=== PATIENT | female | born 2000 | race Caucasian/White ===

== ENCOUNTER → 2020-02-13 10:22 | Outpatient (BNVA) | payer BC, SELFPAY | PROVIDERS: PCP Family Medicine; Visit Provider Nurse Practitioner | DX: J02.9 Acute pharyngitis, unspecified (principal); J30.9 Allergic rhinitis, unspecified; R09.82 Postnasal drip | CPT/HCPCS: 87071; 87880 ==

== ENCOUNTER 2020-04-28 15:55 | Emergency (ER) | payer BC, SELFPAY ==
[2020-04-28 15:57] VITALS: BP 115/77; PULSE 80; RESP 18; TEMP 36.9; O2SAT 98; BMI 21.9
--- NOTE | 2020-04-28 16:16 | XRR_ITS ---
PROCEDURE INFORMATION: Exam: XR Chest, 1 View Exam date and time: 04/28/2020 4:35 PM Age: 19 years old Clinical indication: Other: Hemoptysis TECHNIQUE: Imaging protocol: XR of the chest Views: 1 view. COMPARISON: No relevant prior studies available. FINDINGS: Lungs: Unremarkable. No consolidation. Pleural space: Unremarkable. No pleural effusion. No pneumothorax. Heart/Mediastinum: Unremarkable. No cardiomegaly. Bones/joints: Unremarkable. XR/XR chest 1V portable [id number] IMPRESSION: No acute findings.
--- NOTE | 2020-04-28 16:20 | W.ED.GENADLT ---
HPI - General Adult General: Chief complaint: General Medical Stated complaint: COUGH WITH BLOOD/HERNIA Time Seen by Provider: 04/28/20 16:15 History of Present Illness: HPI narrative: Patient says that over the last couple months she is coughed up some blood-tinged stuff out of her mouth at times denies shortness of breath is a smoker. Says also that she has little hernia that she has had since she had a not bothering her but she feels a little ball is something right above her umbilicus not painful not swollen. No night sweats no recent weight loss. complaint: Hemoptysis Onset (ago): month(s) Associated symptoms: Reports no associated symptoms; Deny chest pain, dyspnea, headache(s), nausea, rash or vomiting Review of Systems Const: Denies: fever(s), chills or body aches Eyes: Denies: change in vision or blurry vision ENMT: Denies: throat pain or nasal congestion Card: Denies: chest pain or dyspnea on exertion Resp: Reports: hemoptysis (Like speckled stuff that comes up); Denies: dyspnea, productive cough or non-productive cough GI: Reports: other (Think she has umbilical hernia); Denies: abdominal pain, nausea or vomiting Musc: Denies: extremity pain Skin/Breast: Denies: rash Neuro: Denies: headache(s) Psych: Denies: anxiety or depression Mukesh/Lymph: Denies: easy bruising PFS ED PFSH: Social History (Updated 02/13/20 @ 10:18 by Kaya Hong LPN) Smoking and tobacco status: current every day smoker Physical Exam Const: COMMON NORMALS: no acute distress, average body habitus and patient oriented x3 HENMT: COMMON NORMALS: normocephalic HEAD & SCALP: normal to inspection and normocephalic FACE & SINUS: normal facial exam Eye: COMMON NORMALS: conjunctivae normal GENERAL EYE: appearance normal, both eyes and all related structures CONJUNCTIVA: Yes conjunctivae normal Neck/C-Spine: COMMON NORMALS: no JVD Chest: COMMONS NORMALS: normal inspection of the chest Resp: COMMON NORMALS: normal respiratory effort and clear to auscultation bilaterally AUSCULTATION: clear to auscultation bilaterally Cardio: COMMON NORMALS: no JVD, regular rate and regular rhythm RATE: regular rate RHYTHM: regular rhythm GI: COMMON NORMALS: Normal to inspection, nondistended, normoactive bowel sounds present INSPECTION: Yes other (Possible small umbilical hernia 12 o'clock position to the umbilicus could be scar tissue to because she has had a belly ring and not painful not swollen does not protrude out) Extremity: COMMON NORMALS: normal to inspection and full ROM Neuro: COMMON NORMALS: patient oriented x3 Course Vital Signs: Vital signs: Vital Signs Temperature 98.4 F 04/28/20 15:57 Pulse Rate 80 04/28/20 15:57 Respiratory Rate 18 04/28/20 15:57 Blood Pressure 115/77 04/28/20 15:57 Pulse Oximetry 98 04/28/20 15:57 Discharge Plan Discharge Prescriptions: No Action No Known Home Medications RF: 0 Coding Level of Care Code ED Corking Machine Operator for Chg Fwd Exam Comprehensive
[2020-04-28 16:53] VITALS: BP 116/58; PULSE 68; RESP 18; O2SAT 99
== END 2020-04-28 16:59 | disposition home or self-care (01) ==
PROVIDERS: Emergency Provider Nurse Practitioner Family; PCP Family Medicine
DX: R04.2 Hemoptysis (principal); F17.210 Nicotine dependence, cigarettes, uncomplicated
CPT/HCPCS: 12345; 71045; 99281; 99282

== ENCOUNTER 2021-05-31 13:27 | Emergency (ER) | payer BC, SELFPAY ==
[2021-05-31 13:47] VITALS: BMI 19.8
--- NOTE | 2021-05-31 13:55 | ED_ITS ---
HPI - General Adult General: Chief complaint: Psychiatric Symptoms Stated complaint: PSYCH/ SI Time Seen by Provider: 05/31/21 13:48 History of Present Illness: HPI narrative: This patient is a 20-year-old female who presents to the emergency department with complaint of suicidal ideation. Patient states she just does not want to live. Patient has a history of the same has a history of cutting herself in a history of old overdose three times. Patient states she recently had her children taken away from her due to false allegations. Patient states that her boyfriend broke up with her today and that she is bending and. Patient was brought in by [employer] Operator's deputy. Police [facility]'s deputy responded to the residents for the patient being suicidal. Patient states that she had try to cut her hand while she was intentionally smashing glass that she could cut herself.. She kept stating to the transit police officer I cannot take this anymore . Associated symptoms: Deny chest pain, dyspnea, headache(s), nausea, rash, palpitations or vomiting Review of Systems General: Reports: 10 or more systems reviewed and unremarkable except in HPI and below Const: Denies: fever(s), chills, body aches or fatigue Eyes: Denies: change in vision or blurry vision ENMT: Denies: throat pain, hoarseness or mouth pain Card: Denies: chest pain, palpitations, irregular heart rhythm, edema, swelling of feet/ankles or lightheadedness Resp: Denies: dyspnea, productive cough, non-productive cough, wheezing or pain on inspiration GI: Denies: abdominal pain, nausea or vomiting : Denies: flank pain, difficulty voiding, dysuria, urinary frequency, urinary urgency or urinary hesitancy Musc: Denies: neck pain, back pain, extremity pain, extremity swelling, joint pain, joint swelling, joint redness, joint warmth or limited range of motion Skin/Breast: Denies: rash, pruritus, erythema or skin tenderness Neuro: Denies: headache(s), numbness in extremities or weakness in extremities Psych: Reports: anxiety and suicidal ideation; Denies: depression PFSH ED PFSH: Social History Smoking and tobacco status: current every day smoker Physical Exam Const: COMMON NORMALS: no acute distress, average body habitus, patient oriented x3, no limitations, healthy appearing, alert and well nourished HENMT: COMMON NORMALS: normocephalic, atraumatic, hearing grossly normal bilaterally, external ears normal, EAC's normal, TM's normal bilaterally, Normal external nose present, Normal nasal mucous membranes and turbinates present, moist oral mucous membranes, oropharynx normal, dentition normal and gingiva normal HEAD & SCALP: normocephalic and atraumatic NOSE: Normal external nose present and Normal nasal mucous membranes and turbinates present EXTERNAL EAR: Yes external ears normal EXTERNAL AUDITORY CANAL: EAC's normal TYMPANIC MEMBRANE: TM's normal bilaterally Neck/C-Spine: COMMON NORMALS: full ROM, no lymphadenopathy, supple, no meningeal signs, no JVD, Thyroid normal and No carotid bruits THYROID: Thyroid normal Chest: COMMONS NORMALS: normal inspection of the chest, normal palpation of entire chest wall, normal inspection of the breasts and normal palpation of the breasts Breast/axilla inspection: Yes normal inspection of the breasts BREAST/AXILLA PALPATION: Yes normal palpation of the breasts Resp: COMMON NORMALS: normal respiratory effort, No retractions, No use of accessory muscles, clear to auscultation bilaterally and percussion normal AUSCULTATION: clear to auscultation bilaterally PERCUSSION: percussion normal Cardio: COMMON NORMALS: no JVD, regular rate, regular rhythm, S1 normal heart sound present, S2 normal heart sound present, No gallops present (Cardio), No clicks present (Cardio), No murmurs present (Cardio), No rub (Cardio) and Peripheral pulses 2+ throughout RATE: regular rate RHYTHM: regular rhythm HEART SOUNDS: S1 normal heart sound present and S2 normal heart sound present PERIPHERAL PULSES: Peripheral pulses 2+ throughout GI: COMMON NORMALS: Normal to inspection, nondistended, normoactive bowel sounds present, Soft to palpation, non-tender, No hepatosplenomegaly present, no masses and no bruits PALPATION: Yes Soft to palpation and Yes No hepatosplenomegaly present Back/Pelvis: COMMON NORMALS: thoracic and lumbar spine normal to inspection, no thoracic nor lumbar tenderness, thoraco-lumbar ROM normal and straight leg raise negative bilaterally Extremity: COMMON NORMALS: normal to inspection, full ROM, capillary refill normal, no joint enlargement, no clubbing, cyanosis or edema, no calf tenderness and no pedal edema Neuro: COMMON NORMALS: patient oriented x3 SENSORIUM/ORIENTATION: Yes alert MENINGEAL SIGNS: Yes no meningeal signs Psych: COMMON NORMALS: cooperative THOUGHT CONTENT: Yes Suicidality present Course Reevaluation(s): Reevaluation #1: Patient is remorseful for her actions today. Patient states she just feels so frustrated with everything going on with her ex- and her child. False accusations accusing her of using drugs which she is not. And is becoming overwhelming. We discussed at length with patient about options. Patient does go to family court on the discussed custody issues with child. Patient is requesting to be discharged home if possible. I did discuss at length with patient about medical screening exam and evaluate will discuss with psychiatry patient states understanding Time: 14:53 Consultations: Consultation #1: I did discuss at length with Dr. Chandra psychiatry. He will come see patient. Time: 16:19 Consultation #2: Patient seen and evaluated by Dr. Chandra he recommends discharge home with follow-up with primary care. Patient be discharged per her request Time: 17:28 MDM - General Adult MDM Narrative: Medical decision making narrative: This patient is a 20-year-old female who presents to the emergency department with complaint of suicidal ideation. Patient states she just does not want to live. Patient has a history of the same has a history of cutting herself in a history of old overdose three times. Patient states she recently had her children taken away from her due to false allegations. Patient states that her boyfriend broke up with her today and that she is bending and. Patient was brought in by [employer]'s deputy. Police [facility]'s deputy responded to the residents for the patient being suicidal. Patient states that she had try to cut her hand while she was intentionally smashing glass that she could cut herself.. She kept stating to the transit police officer I cannot take this anymore . Patient is remorseful for her actions today. Patient states she just feels so frustrated with everything going on with her ex- and her child. False accusations accusing her of using drugs which she is not. And is becoming overwhelming. We discussed at length with patient about options. Patient does go to family court on the discussed custody issues with child. Patient is requesting to be discharged home if possible. I did discuss at length with patient about medical screening exam and evaluate will discuss with psychiatry patient states understanding Patient seen and evaluated by Dr. Chandra he recommends discharge home with follow-up with primary care. Patient be discharged per her request Lab Data: Labs: Lab Results 05/31/21 05/31/21 05/31/21 Range/Units 14:27 14:27 14:27 WBC (4.0-10.0) 10^3/ uL RBC (4.1-5.3) 10^6/u L Hgb (11.5-15.3) g/dL Hct (37.0-47.0) % MCV (81-99) fL MCH (28.0-34.0) pg MCHC (30.0-36.0) g/dL RDW (12.1-15.1) % Plt Count (130-400) 10^3/c mm MPV (7.4-10.4) fL Neut % (Auto) % Lymph % (Auto) % Kinney % (Auto) % Eos % (Auto) % Baso % (Auto) % Neut # (Auto) (1.8-7.7) 10^3/u L Lymph # (Auto) (0.8-4.8) 10^3/u L Kinney # (Auto) (0.2-0.9) 10^3/u L Eos # (Auto) (0.0-0.8) 10^3/u L Baso # (Auto) (0.0-0.1) 10^3/u L Nucleated RBC % (a uto) % Nucleated RBCs # /100WBC Sodium (136-145) mmol/L Potassium (3.5-5.1) mmol/L Chloride (98-107) mmol/L Carbon Dioxide (22-29) mmol/L Anion Gap (5-19) BUN (6-20) mg/dL Creatinine (0.5-0.9) mg/dL GFR Calculation (90-130) mL/min Glucose (65-115) mg/dL Calculated Osmolal ity (285-295) mOsm/k g Calcium (8.5-10.5) mg/dL Total Bilirubin (0.15-1.2) mg/dL AST (0-32) U/L ALT (0-33) U/L Alkaline Phosphata se (35-105) IU/L Total Protein (6.6-8.7) g/dL Albumin (3.5-5.2) g/dL Globulin (1.3-4.6) g/dL HCG, Qual Negative (Negative) Urine Color Yellow (Yellow) Urine Appearance Clear (CLEAR) Urine pH 6 (5-7) Ur Specific Gravit y 1.015 (1.005-1.030) Urine Protein Neg (Negative) Urine Glucose (UA) Norm (Normal) Urine Ketones 1+ H (Negative) Urine Blood Neg (Negative) Urine Nitrate Negative (Negative) Urine Bilirubin Neg (Negative) Urine Urobilinogen 1 H (Negative) mg/dL Ur Leukocyte Yolanda ase Negative (Negative) Salicylates (3-10) mg/dL Urine Opiates Scre en Negative (Negative) ng/mL Acetaminophen (10-30) ug/mL Ur Barbiturates Sc reen Negative (Negative) ng/mL Ur Phencyclidine S crn Negative (Negative) ng/mL Ur Amphetamines Sc reen Negative (Negative) ng/mL U Benzodiazepines Scrn Negative (Negative) ng/mL Urine Cocaine Scre en Negative (Negative) ng/mL U Marijuana (THC) Screen Positive H (Negative) ng/mL Ethyl Alcohol (0-10) mg/dL 05/31/21 05/31/21 Range/Units 14:33 14:33 WBC 17.1 H (4.0-10.0) 10^3/ uL RBC 4.72 (4.1-5.3) 10^6/u L Hgb 15.4 H (11.5-15.3) g/dL Hct 45.8 (37.0-47.0) % MCV 97.0 (81-99) fL MCH 32.6 (28.0-34.0) pg MCHC 33.6 (30.0-36.0) g/dL RDW 12.1 (12.1-15.1) % Plt Count 357 (130-400) 10^3/c mm MPV 9.9 (7.4-10.4) fL Neut % (Auto) 83.3 % Lymph % (Auto) 11.1 % Kinney % (Auto) 4.7 % Eos % (Auto) 0.1 % Baso % (Auto) 0.4 % Neut # (Auto) 14.27 H (1.8-7.7) 10^3/u L Lymph # (Auto) 1.9 (0.8-4.8) 10^3/u L Kinney # (Auto) 0.8 (0.2-0.9) 10^3/u L Eos # (Auto) 0.0 (0.0-0.8) 10^3/u L Baso # (Auto) 0.1 (0.0-0.1) 10^3/u L Nucleated RBC % (a uto) 0 % Nucleated RBCs # 0.0 /100WBC Sodium 139 (136-145) mmol/L Potassium 4.1 (3.5-5.1) mmol/L Chloride 106 (98-107) mmol/L Carbon Dioxide 22 (22-29) mmol/L Anion Gap 15.1 (5-19) BUN 15 (6-20) mg/dL Creatinine 0.6 (0.5-0.9) mg/dL GFR Calculation 125.0 (90-130) mL/min Glucose 78 (65-115) mg/dL Calculated Osmolal ity 288 (285-295) mOsm/k g Calcium 9.0 (8.5-10.5) mg/dL Total Bilirubin 0.4 (0.15-1.2) mg/dL AST 19 (0-32) U/L ALT 11 (0-33) U/L Alkaline Phosphata se 63 (35-105) IU/L Total Protein 7.1 (6.6-8.7) g/dL Albumin 4.8 (3.5-5.2) g/dL Globulin 2.3 (1.3-4.6) g/dL HCG, Qual (Negative) Urine Color (Yellow) Urine Appearance (CLEAR) Urine pH (5-7) Ur Specific Gravit y (1.005-1.030) Urine Protein (Negative) Urine Glucose (UA) (Normal) Urine Ketones (Negative) Urine Blood (Negative) Urine Nitrate (Negative) Urine Bilirubin (Negative) Urine Urobilinogen (Negative) mg/dL Ur Leukocyte Yolanda ase (Negative) Salicylates 0.6 L (3-10) mg/dL Urine Opiates Scre en (Negative) ng/mL Acetaminophen < 5.0 L (10-30) ug/mL Ur Barbiturates Sc reen (Negative) ng/mL Ur Phencyclidine S crn (Negative) ng/mL Ur Amphetamines Sc reen (Negative) ng/mL U Benzodiazepines Scrn (Negative) ng/mL Urine Cocaine Scre en (Negative) ng/mL U Marijuana (THC) Screen (Negative) ng/mL Ethyl Alcohol < 10 (0-10) mg/dL EKG Data^: EKG 1: Attestation: I personally reviewed and interpreted this EKG as follows: EKG interpretation date: 05/31/21 EKG interpretation time: 15:57 Prior EKG tracings: not available for review Interpretation: Sinus rhythm with a normal sinus arrhythmia normal EKG heart rate 96 Discharge Plan Discharge Patient Disposition: Home Clinical Impression: Abnormal grief reaction, Borderline personality disorder Condition: Stable Prescriptions: No Action No Known Home Medications RF: 0 Discharge Orders: Discharge ED (Routine); Ordered 05/31/21 Ordered By: Rishi Emery Discharge Diet: Advance as tolerated Discharge Activity: Resume usual activity Patient Instructions: Opioid Safety Activity Restrictions/Additional Instructions: Continue all home medications. Avoid drugs and alcohol. Follow-up with your primary care physician [facility] counseling as Dr. Chandra discussed. Coding Level of Care Code ED Factorer for Keith Fwd Exam Comprehensive
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
[2021-05-31 14:36] LABS: HCG Qualitative Urine. Negative (Negative)
[2021-05-31 14:38] LABS: Basophils # 0.1 10^3/uL (0.0-0.1); Basophils % 0.4 %; Eosinophils % 0.1 %; Hematocrit 45.8 % (37.0-47.0); Hemoglobin 15.4 g/dL (11.5-15.3); Lymphocytes # 1.9 10^3/uL (0.8-4.8); Lymphocytes % 11.1 %; Mean Corpuscular HGB Conc 33.6 g/dL (30.0-36.0); Mean Corpuscular Hemoglobin 32.6 pg (28.0-34.0); Mean Platelet Volume 9.9 fL (7.4-10.4); Monocytes # 0.8 10^3/uL (0.2-0.9); Monocytes % 4.7 %; Neutrophils # 14.27 10^3/uL (1.8-7.7); Neutrophils % 83.3 %; Nucleated Red Blood Cells % 0 %; Platelet Count 357 10^3/cmm (130-400); Red Blood Count 4.72 10^6/uL (4.1-5.3); Red Cell Distribution Width 12.1 % (12.1-15.1); White Blood Count 17.1 10^3/uL (4.0-10.0)
[2021-05-31 15:02] LABS: Alanine Aminotransferase 11 U/L (0-33); Albumin Level 4.8 g/dL (3.5-5.2); Alkaline Phosphatase 63 IU/L (35-105); Anion Gap 15.1 (5-19); Aspartate Amino Transferase 19 U/L (0-32); Blood Urea Nitrogen 15 mg/dL (6-20); Carbon Dioxide 22 mmol/L (22-29); Chloride 106 mmol/L (98-107); Globulin 2.3 g/dL (1.3-4.6); Glucose 78 mg/dL (65-115); Osmolality Calculated 288 mOsm/kg (285-295); Potassium 4.1 mmol/L (3.5-5.1); Salicylate 0.6 mg/dL (3-10); Sodium 139 mmol/L (136-145); Total Bilirubin 0.4 mg/dL (0.15-1.2); Total Protein 7.1 g/dL (6.6-8.7)
[2021-05-31 15:14] LABS: Acetaminophen < 5.0 ug/mL (10-30); Alcohol Level < 10 mg/dL (0-10)
[2021-05-31 15:30] LABS: Add Urine Microscopic? NO; Charge for UA Resulting for Rev
[2021-05-31 15:31] LABS: Bilirubin Urine Neg (Negative); Blood Urine Neg (Negative); Glucose Urine UA Norm (Normal); Ketones Urine 1+ (Negative); Leukocyte Esterase Urine Negative (Negative); Nitrate Urine Negative (Negative); Protein Urine Neg (Negative); Specific Gravity, Urine 1.015 (1.005-1.030); Urine Appearance Clear (CLEAR); Urine Color Yellow (Yellow); Urobilinogen Urine 1 mg/dL (Negative); pH Urine 6 (5-7)
[2021-05-31 15:41] LABS: Amphetamines Screen Urine Negative (Negative); Barbiturates Screen Urine Negative (Negative); Benzodiazepines Screen Urine Negative (Negative); Cocaine Screen Urine Negative (Negative); Opiate Screen Urine Negative (Negative); PCP Screen Urine Negative (Negative); THC Screen Urine Positive (Negative)
== END 2021-05-31 17:42 | disposition home or self-care (01) ==
PROVIDERS: Emergency Provider Emergency Medicine
DX: F60.3 Borderline personality disorder (principal); F43.20 Adjustment disorder, unspecified; F17.210 Nicotine dependence, cigarettes, uncomplicated
CPT/HCPCS: 80053; 80306; 80307; 81003; 81025; 85025; 99283

== ENCOUNTER → 2021-11-12 11:20 | Outpatient (BNVA) | payer BC, SELFPAY | PROVIDERS: Visit Provider Surgery | DX: K42.9 Umbilical hernia without obstruction or gangrene (principal) | CPT/HCPCS: 87635 ==

== ENCOUNTER 2021-11-18 11:31 | Day surgery (SDC) | payer BC, SELFPAY ==
[2021-11-12 14:29] VITALS: BMI 21.7
[2021-11-18] VITALS (14 sets, daily range): BP systolic 101–130; BP diastolic 58–75; PULSE 60–81; RESP 10–21; TEMP 36.2–37.1; O2SAT 98–100
[2021-11-18 11:42] LABS: OR HCG Qualitative Urine Negative (Negative)
[2021-11-18] MEDS: sodium chloride 0.9% 1,000 ML 30 ML IV (11:52)
[2021-11-18] MEDS: scopolamine 1.5 Patch 1 PATCH TRANSDERMA (11:53)
--- NOTE | 2021-11-18 12:03 | P.ANESASSM_ITS ---
Pre-Anesthetic Assessment Pre-Anesthetic Assessment: Height/Weight: Height 1.55 m Weight 52.163 kg Temp Pulse Resp BP Pulse Ox 98.7 F 79 18 130/70 99 11/18/21 11:44 11/18/21 11:44 11/18/21 11:44 11/18/21 11:44 11/18/21 11:44 Preop Diagnosis: umbilical hernia Proposed Procedure: Operation Date: 11/18/21 12:30 Proposed Procedures p Open Umbilical Hernia Repair w/ poss Mesh [id number] K42.9(Not Applicable) - Mark Herrera MD Was Beta Sathish taken within 24 hours: N/A Was Clonidine taken within 24 hours: N/A Last intake: Intake Last Liquid Date 11/17/21 Last Liquid Time 22:30 Last Solid Date 11/17/21 Last Solid Time 20:00 Social: Social History: Tobacco Exam: Pre-Anes Outpt Exam: alert, oriented x 3, clear to auscultation bila terally and regular rate & rhythm Airway: Submandibular: WNL Cervical ROM: WNL MP: 1 Dentition: Full History/ROS: No significant history except as noted and No significant complaints Pulmonary: Pulmonary: None reported CV/HEM: CV/HEM: None reported : : None reported Hepatic: Hepatic: None reported GI: GI: None reported Metabolic: Metabolic: None reported Musc/skel: Musc/skel: None reported Neuropsych: Comments: PTSD Hx of substance abuse disorder in remission Anesthetic Plan: ASA status: 2 Anesthesia: Anesthesia Evaluation and General Risk of > 500 ml blood loss (7ml/kg in children): No Meds/Allergies Current Medications: Current Medications Generic Name Dose Route Start Last Admin Trade Name Freq PRN Reason Stop Dose Admin Sodium Chloride 1,000 mls @ 30 ml s/hr 11/18/21 11:30 11/18/21 11:52 Sodium Chloride 0.9% IV 11/19/21 11:29 30 mls/hr .Q24H NILES Administration PFSH Anesthesia PFSH: Medical History Psychiatric care Substance abuse in remission Social History Smoking and tobacco status: current some day smoker Female Reproductive History: Date of last menstrual period: 11/09/21 Data Anesthesia Other Labs: Laboratory Results - last 48 hr 11/18/21 11:25 Urine HCG, Qual Negative Cardiac Studies: No Data to Display
--- NOTE | 2021-11-18 12:42 | P.HP_ITS ---
Same Day Surgery H&P Indication for Procedure/HPI DATE OF PROCEDURE: November 18, 2021 CHIEF COMPLAINT/INDICATIONFOR SURGICAL PROCEDURE: umbilical hernia repair PREOP DIAGNOSIS: umbilical hernia PLANNED PROCEDRUE: Operation Date: 11/18/21 12:30 Proposed Procedures p Open Umbilical Hernia Repair w/ poss Mesh [id number] K42.9(Not Applicable) - Mark Herrera MD Medications/Allergies* Home Medications Medication Instructions Recorded Confirmed Type No Known Home Medications 05/31/21 11/12/21 History Allergies/Adverse Reactions Allergy/AdvReac Type Severity Reaction Status Date / Time No Known Allergies Allergy Verified 11/18/21 11:45 Current Medications: Generic Name Dose Route Start Last Admin Trade Name Freq PRN Reason Stop Dose Admin Sodium Chloride 1,000 mls @ 30 mls/hr 11/18/21 11:30 11/18/21 11:52 Sodium Chloride 0.9% IV 11/19/21 11:29 30 mls/hr .Q24H NILES Administration Pertinent History/Comorbid Conditions* Medical History (Updated 10/22/21 @ 15:26 by Mark Herrera MD) Psychiatric care Substance abuse in remission Social History Smoking and tobacco status: current some day smoker Pertinent Exam Findings alert, oriented x 3 and regular rate & rhythm Recommendations Surgery/Procedure today Coding Level of Care Code Acute [employer] for [employer]
--- NOTE | 2021-11-18 13:20 | PM.OP ---
Operative Report Date of procedure: November 18, 2021 Pre-op Diagnosis: Incarcerated umbilical hernia Post-op Diagnosis: Incarcerated umbilical hernia measuring 1 cm containing omentum Procedure Done: Open primary repair of of umbilical hernia Surgeon: Mark Herrera Anesthesia: General Disposition: PACU Procedure: The patient was taken to the operating room and intubated under general anesthesia after IV antibiotic had been administered. The abdomen was prepped and draped in a sterile manner. A 2 cm longitudinal supraumbilical incision was made using a 15 blade over the palpable incarcerated hernia, hernial sac was dissected using hemostats. The hernial sac was opened and omentum was reduced into the peritoneal cavity. Interrupted sutures using 0 Vicryl was used to close the hernial defect without any tension. The subcutaneous tissues were approximated using 3-0 Vicryl suture and skin was closed using running subcuticular 4-0 Monocryl sutures. Dermabond was applied and 10 mL of 0.5% Marcaine was infiltrated around the incision. The patient was extubated and transferred recovery room in stable condition.
[2021-11-18] MEDS: fentaNYL 50 mcg/mL INJ 2mL IVP (13:58)
[2021-11-18] MEDS: HYDROcodone-acetaminophen 5-325 mg Tablet 1 TAB PO (14:39)
--- NOTE | 2021-11-18 15:04 | ANE.PACU2 ---
Inpatient post-anesthesia follow up: Airway intact: Yes Vital signs: Temperature 98.6 F Pulse Rate 75 Respiratory Rate 18 Blood Pressure 119/67 Pulse Oximetry 98 Oxygen Delivery Me thod Room Air Oxygen Flow Rate 8 Fraction of Inspir ed Oxygen Hydration adequate: Yes Nausea and vomiting: No Pain level: 3 Mental status: Baseline
== END 2021-11-18 15:02 | disposition home or self-care (01) ==
PROVIDERS: Visit Provider Surgery
PROC: (CPT 49587; principal; 2021-11-18 12:30)
DX: K42.0 Umbilical hernia with obstruction, without gangrene (principal); F17.210 Nicotine dependence, cigarettes, uncomplicated
CPT/HCPCS: 49587; 81025; 84703; J0690; J1100; J2250; J2405; J2704; J3010; J3490; J7030

== ENCOUNTER → 2022-02-04 09:41 | Outpatient (BNVA) | payer BC, SELFPAY | PROVIDERS: PCP Family Medicine; Visit Provider Family Medicine | DX: R25.1 Tremor, unspecified (principal); R53.83 Other fatigue; Z76.89 Persons encountering health services in other specified circumstances; Z01.89 Encounter for other specified special examinations | CPT/HCPCS: 80053; 83036; 84443; 85025 ==

== ENCOUNTER → 2023-01-27 10:40 | Outpatient (BNVA) | payer SELFPAY | PROVIDERS: Visit Provider Nurse Practitioner Women's Health | DX: Z12.4 Encounter for screening for malignant neoplasm of cervix (principal); Z11.3 Encounter for screening for infections with a predominantly sexual mode of transmission; N92.0 Excessive and frequent menstruation with regular cycle | CPT/HCPCS: 84443; 86592; 86803; 87340; 87491; 87591; 87661; 87806; 88175 ==

== ENCOUNTER → 2023-02-06 08:30 | Outpatient (BNVA) | payer SELFPAY | PROVIDERS: Visit Provider Nurse Practitioner Women's Health | DX: N92.0 Excessive and frequent menstruation with regular cycle (principal) | CPT/HCPCS: 84439; 84443; 84481 ==

== ENCOUNTER → 2023-03-05 08:00 | Outpatient (BNVA) | payer BC, SELFPAY | PROVIDERS: Visit Provider Nurse Practitioner Women's Health | DX: N92.0 Excessive and frequent menstruation with regular cycle (principal) | CPT/HCPCS: 76830 ==

== ENCOUNTER → 2024-05-08 18:46 | Outpatient (BNVA) | payer BC, SELFPAY | PROVIDERS: Visit Provider Emergency Medicine | DX: J02.9 Acute pharyngitis, unspecified (principal) | CPT/HCPCS: 87880 ==

== ENCOUNTER → 2025-07-10 10:55 | Outpatient (BNVA) | payer SELFPAY | PROVIDERS: Visit Provider Nurse Practitioner | DX: J02.9 Acute pharyngitis, unspecified (principal); R09.89 Other specified symptoms and signs involving the circulatory and respiratory systems | CPT/HCPCS: 87070; 87426; 87880 ==